=== PATIENT | female | born 1995 | race Caucasian/White ===

== ENCOUNTER 2019-08-05 02:36 | Emergency (ER) | payer SELFPAY ==
[2019-08-05] MEDS ORDERED: Al Hydrox/Mg Hydrox/Simet LIQ* 30 ML UDC PO ONE (04:35)
[2019-08-05] MEDS ORDERED: Lidocaine 2% VISCOUS* 15 ML UDC PO ONE (04:35)
--- NOTE | 2019-08-05 04:36 | ED ---
Abdominal Pain/Female - HPI Summary HPI Summary: Patient is a 24 y/o F presenting to the ED for a chief complaint of epigastric abdominal pain. Patient states that the abdominal pain began at approximately 05 :00 on 08/04/19 when waking up. The pain is described as radiating to the bilateral flanks and back. Patient also admits nausea, diaphoresis, pre-syncope , urinary burning, and decreased appetite. She denies constipation, hematuria, vomiting, or fever. She took ibuprofen without relief. PMHx is significant for degenerative disc disease. She denies a PSHx of abdominal surgery. Patient received an influenza vaccination 2 weeks ago. - History of Current Complaint Chief Complaint: EDFlankPain Stated Complaint: BACK PAIN PER PT Time Seen by Provider: 08/05/19 04:18 Hx Obtained From: Patient Onset/Duration: Sudden Onset, Still Present Timing: Constant Severity Initially: Severe Severity Currently: Severe Pain Intensity: 8 Pain Scale Used: 0-10 Numeric Location: Epigastric, Flank - Bilateral Radiates: Yes Radiates to: Back, Other - Bilateral flanks Aggravating Factor(s): Nothing Alleviating Factor(s): Nothing Associated Signs and Symptoms: Positive: Back Pain - Radiates from abdomen, Nausea. Negative: Fever, Constipation, Urinary Symptoms - Positive urinary burning; negative hematuria, Vomiting Allergies/Adverse Reactions: Allergies Allergy/AdvReac Type Severity Reaction Status Date / Time No Known Allergies Allergy Verified 08/05/19 02:41 PMH/Surg Hx/FS Hx/Imm Hx Previously Healthy: Yes Endocrine/Hematology History: Denies: Hx Diabetes Cardiovascular History: Denies: Hx Hypercholesterolemia, Hx Hypertension Musculoskeletal History: Reports: Other Musculoskeletal History - DDD Sensory History: Denies: Hx Legally Blind, Hx Deafness Opthamlomology History: Denies: Hx Legally Blind EENT History: Denies: Hx Deafness Psychiatric History: Denies: Hx Eating Disorder, Hx of Violent Episodes Against Others - Surgical History Surgical History: None Surgery Procedure, Year, and Place: None Infectious Disease History: No Infectious Disease History: Denies: Traveled Outside the [place] in Last 30 Days - Family History Known Family History: Negative: Diabetes, Renal Disease - Social History Occupation: Employed Full-time Lives: With Family Alcohol Use: Occasionally Hx Substance Use: Yes Substance Use Type: Reports: Marijuana Hx Tobacco Use: Yes Smoking Status (MU): Current Every Day Smoker Review of Systems Positive: Skin Diaphoresis, Other - Positive decreased appetite. Negative: Fever Positive: Abdominal Pain - Epigastric, Nausea, Other - Negative constipation. Negative: Vomiting Positive: burning - Urinary, flank pain - Bilateral that radiates from the abdomen. Negative: hematuria Positive: Myalgia - Back that radiates from the abdomen Neurological: Other - Positive pre-syncope All Other Systems Reviewed And Are Negative: Yes Physical Exam - Summary Physical Exam Summary: Appearance: Well-appearing, Well-nourished, lying in bed comfortably Skin: Warm, dry, no obvious rash Eyes: sclera anicteric, no conjunctival pallor ENT: mucous membranes moist, pharynx appears normal Neck: Supple, nontender Respiratory: Clear to auscultation, no signs of respiratory distress Cardiovascular: Normal S1, S2. No murmurs. Normal distal pulses in tibial and radial bilaterally. Abdomen: Soft, nontender, normal active bowel sounds present Musculoskeletal: Normal, Strength/ROM Intact Neurological: A&Ox3, awake and alert, mentation is normal, speech is fluent and appropriate Psychiatric: affect is normal, does not appear anxious or depressed Triage Information Reviewed: Yes Vital Signs On Initial Exam: Initial Vitals Temp Pulse Resp BP Pulse Ox 97.3 F 85 16 109/78 99 08/05/19 02:38 08/05/19 02:38 08/05/19 02:38 08/05/19 02:38 08/05/19 02:38 Vital Signs Reviewed: Yes Procedures - Sedation Patient Received Moderate/Deep Sedation with Procedure: No Diagnostics - Vital Signs Vital Signs Temp Pulse Resp BP Pulse Ox 08/05/19 02:38 97.3 F 85 16 109/78 99 - Laboratory Result Diagrams: 08/05/19 04:41 08/05/19 04:41 Lab Statement: Any lab studies that have been ordered have been reviewed, and results considered in the medical decision making process. Abdominal Pain Fem Course/Dx - Course Course Of Treatment: Patient is a 24 y/o F presenting to the ED for a chief complaint of epigastric abdominal pain. Patient states that the abdominal pain began at approximately 05:00 on 08/04/19 when waking up. The pain is described as radiating to the bilateral flanks and back. Patient also admits nausea, diaphoresis, pre-syncope, urinary burning, and decreased appetite. She denies constipation, hematuria, vomiting, or fever. She took ibuprofen without relief. PMHx is significant for degenerative disc disease. She denies a PSHx of abdominal surgery. Patient received an influenza vaccination 2 weeks ago. On exam, unremarkable findings. In the ED course, patient was given Maalox 30 ml PO and lidocaine 15 ml PO. Laboratory abnormal findings: plt count 146, glucose 145, globulin 1.9, urine specific gravity 1.031, urine protein 1+, urine ketones trace, urine leukocyte esterase 3+, urine WBC 3+, urine RBC 2+, urine squamous epith cells present, urine bacteria 1+, urine glucose 1+, urine ascorbic acid present. Patient will be discharged with a diagnosis of kidney infection and a prescription for Bactrim 1 tab PO. Follow up with PCP in 2-3 days. - Diagnoses Provider Diagnoses: Kidney infection Discharge ED - Sign-Out/Discharge Documenting (check all that apply): Patient Departure - Discharge - Discharge Plan Condition: Stable Disposition: HOME Prescriptions: Ondansetron ODT TAB* [Zofran 4 MG Odt TAB*] 8 mg PO Q6H PRN #10 tab.odt PRN Reason: Nausea oxyCODONE/Acetamin 5/325 MG* [Percocet 5/325 TAB*] 1 tab PO Q4H PRN #12 tab MDD 4 PRN Reason: Pain - Severe Patient Education Materials: Kidney Infection (ED) Forms: *Work Release Referrals: Noam Aguilar PA [Primary Care Provider] - 4 Days (if not starting to improve) Additional Instructions: With this type of infection, it typically will take a few days to feel like you are starting to improve, but if you are feeling a lot worse we should see you back. - Billing Disposition and Condition Condition: STABLE Disposition: Home - Attestation Statements Document Initiated by Jim: Yes Documenting Scribe: Danielle Hoyt Provider For Whom Jim is Documenting (Include Credential): Bob Bhandari MD Scribe Attestation: Danielle Vasquez scribed for Bob Bhandari MD on 08/05/19 at 0649. Scribe Documentation Reviewed: Yes Provider Attestation: The documentation as recorded by the Danielle curtis accurately reflects the service I personally performed and the decisions made by me, Bob Bhandari MD Status of Scribe Document: Viewed
[2019-08-05 04:46] LABS: Urine Appearance Cloudy; Urine Bilirubin Negative (Negative); Urine Blood Negative (Negative); Urine Color Yellow; Urine Glucose 1+(50 mg/dL) (Negative); Urine Ketones Trace (Negative); Urine Nitrite Negative (Negative); Urine Protein 1+(30 mg/dL) (Negative); Urine Specific Gravity 1.031 (1.010-1.030); Urine Urobilinogen Negative (Negative)
[2019-08-05 04:53] LABS: Urine Bacteria 1+ (Absent); Urine Red Blood Cell 2+(6-10/hpf) (Absent); Urine Squamous Epithelial Cell Present (Absent); Urine White Blood Cell 3+(>20/hpf) (Absent)
[2019-08-05 04:55] LABS: ABS Eosinophils 0.1 10^3/ul (0-0.6); ABS Lymphocytes 1.8 10^3/ul (1.0-4.8); ABS Monocytes 0.5 10^3/ul (0-0.8); ABS Neutrophils 4.5 10^3/ul (1.5-7.7); Eosinophil % 1.5 %; Hematocrit 40 % (35-47); Hemoglobin 13.7 g/dL (12.0-16.0); Lymphocyte % 25.9 %; Mean Corpuscular HGB Conc 35 g/dL (31-36); Mean Corpuscular Hemoglobin 31 pg (27-31); Mean Corpuscular Volume 89 fL (80-97); Mean Platelet Volume 8.5 fL (7.4-10.4); Nucleated Red Blood Cells % 0.1; Platelet Count 146 10^3/uL (150-450); Red Blood Count 4.45 10^6 /uL (3.70-4.87); Red Cell Distribution Width 13 % (10-15); White Blood Count 6.8 10^3/uL (3.5-10.8)
[2019-08-05 05:12] LABS: ALT 11 U/L (7-52); AST 14 U/L (13-39); Albumin 4.5 g/dL (3.2-5.2); Albumin/Globulin Ratio 2.4 (1-3); Alkaline Phosphatase 82 U/L (34-104); Anion Gap 7 mmol/L (2-11); Blood Urea Nitrogen 13 mg/dL (6-24); C Reactive Protein < 1.00 mg/L (<8.01); CO2 Carbon Dioxide 24 mmol/L (22-32); Calcium 9.5 mg/dL (8.6-10.3); Chloride 107 mmol/L (101-111); EGFR African American 137.9 (>60); Globulin 1.9 g/dL (2-4); Glucose 145 mg/dL (70-100); Potassium 3.9 mmol/L (3.5-5.0); Sodium 138 mmol/L (135-145); Total Protein 6.4 g/dL (6.4-8.9)
[2019-08-05 05:18] LABS: HCG Pregnancy < 0.60 mIU/mL
[2019-08-05] MEDS ORDERED: Sulfamethox/Trimethoprim DS 800/160* TAB PO ONE (06:10)
[2019-08-05 06:28] VITALS: BP 116/69
== END 2019-08-05 06:25 | disposition home or self-care (01) ==
LOC: ED 02:36
DX: N15.9 Renal tubulo-interstitial disease, unspecified (principal); F17.200 Nicotine dependence, unspecified, uncomplicated
CPT/HCPCS: 36415; 80053; 81003; 81015; 83690; 84702; 85025; 86140; 87086; 99284; A9270-GY